=== PATIENT | female | born 1960 | race Caucasian/White ===

== ENCOUNTER 2021-06-17 09:00 | Emergency (ER) | payer OTHER, SELFPAY ==
[2021-06-17 09:10] VITALS: BP 153/60; PULSE 69; RESP 20; TEMP 36.7; O2SAT 100
--- NOTE | 2021-06-17 09:31 | ED.URI ---
HPI - URI/Sore Throat General Chief Complaint: Upper Respiratory Infection Stated Complaint: Cold/flu Time Seen by Provider: 06/17/21 09:33 Source: patient, RN notes reviewed and old records reviewed Mode of arrival: ambulatory Limitations: no limitations History of Present Illness HPI Narrative: 60-year-old female presents to the [facility] with complaints of I think I have bronchitis. Patient reports she has had a cough with chest congestion, sinus congestion, right ear pain. Patient states that she has taken Mucinex. Symptoms x2 days. Denies fevers, nausea, vomiting or diarrhea. States last time she had symptoms like this she had Tessalon Perles and an albuterol inhaler which helped. Related Data Home Medications Medication Instructions Recorded Confirmed aspirin [Aspirin Low Dose] 81 mg PO DAILY 06/17/21 06/17/21 baricitinib [Olumiant] 2 mg PO DAILY 06/17/21 06/17/21 folic acid 1 mg PO DAILY 06/17/21 06/17/21 gabapentin 200 mg PO HS 06/17/21 06/17/21 metoprolol tartrate 50 mg PO BID 06/17/21 06/17/21 sertraline 50 mg PO DAILY 06/17/21 06/17/21 Allergies Allergy/AdvReac Type Severity Reaction Status Date / Time methotrexate Allergy Severe Other Verified 06/17/21 09:27 NSAIDS (Non-Steroidal Allergy Intermediate Wheezing Verified 06/17/21 09:27 Anti-Inflamma Penicillins Allergy Intermediate Rash Verified 06/17/21 09:27 Sulfa (Sulfonamide Allergy Intermediate Rash Verified 06/17/21 09:27 Antibiotics) Review of Systems Review of Systems: All systems reviewed & are unremarkable except as noted in HPI and below Constitutional: Constitutional: Reports no additional constitutional complaints, Denies chills and Denies fever(s) Eyes: Eyes: Reports no additional eye complaints ENT: Reports as per HPI, Reports nasal congestion and Reports sore throat Cardiovascular: Cardiovascular: Reports no additional cardiovascular complaints and Denies chest pain Respiratory: Respiratory: Reports as per HPI, Reports chest congestion, Reports cough, Denies dyspnea and Denies wheezing Gastrointestinal: Gastrointestinal: Reports no additional gastrointestinal complaints, Denies abdominal pain, Denies nausea and Denies vomiting Musculoskeletal: Musculoskeletal: Reports no additional musculoskeletal complaints Integumentary/Breasts: Skin/Breast: Reports system reviewed and no additional complaints, except as docu Neurologic: Reports system reviewed and no additional complaints, except as documented Psychiatric: Psychiatric: Reports no additional psychiatric complaints Allergic/Immunologic: Allergic/Immunologic: Reports no additional allergic/immunologic complaints PMFSH Past Medical History Medical History (Updated 06/17/21 @ 09:47 by Magaly Robledo) Depression with anxiety Irregular heartbeat Rheumatoid arthritis Surgical History Surgical History (Updated 06/17/21 @ 09:44 by Magaly Robledo) No significant past surgical history Social History Social History (Updated 06/17/21 @ 09:44 by Magaly Robledo) Smoking status: Never smoker Substance use: never Living arrangements: with family Occupation/Education: occupation Additional occupation/education comments: Works healthcare Gender identity (if verbalized by the patient): Female Comments At the time of my signature, I reviewed and agree with the nursing past medical, surgical, social, and family history. There is no relevant family history pertinent to the patient complaint. Exam Const: General: healthy appearing, no acute distress and alert Nutritional Appearance: well nourished Orientation/consciousness: patient oriented x3 Limitations: no limitations HENMT: Head: normal to inspection Ears: external ears normal, TM's normal bilaterally and EAC's normal Eyes: Conjunctivae: conjunctivae normal Pupils: Equal, round and reactive pupils present Neck: Neck: normal visual inspection, no lymphadenopathy and no meningeal signs Chest: Chest
== END 2021-06-17 09:50 | disposition home or self-care (01) ==
PROVIDERS: Emergency Provider Nurse Practitioner
DX: J01.40 Acute pansinusitis, unspecified (principal); M06.9 Rheumatoid arthritis, unspecified; F41.9 Anxiety disorder, unspecified; F32.A Depression, unspecified; Z79.82 Long term (current) use of aspirin
CPT/HCPCS: 99213; G0463

== ENCOUNTER 2022-02-16 13:17 | Emergency (ER) | payer OTHER, SELFPAY ==
[2022-02-16 13:53] VITALS: BP 132/74; PULSE 107; RESP 20; TEMP 37.1; O2SAT 99
--- NOTE | 2022-02-16 14:45 | ED.URI ---
HPI - URI/Sore Throat General Chief Complaint: Upper Respiratory Infection Stated Complaint: Covid positive doctor sent Time Seen by Provider: 02/16/22 14:30 Source: patient, RN notes reviewed and old records reviewed Mode of arrival: ambulatory Limitations: no limitations History of Present Illness HPI Narrative: 61 year old female who presents to [facility] care with complaints or testing positive for COVID on home test today and states that her PCP wants her to be evaluated since she has autoimmune disease of RA.Patient reports that she attended a last not sure if she was exposed to anyone there who was ill. She reports that she has a cough and sore throat headache and feels some shortness of breath which started last evening. She reports that she had diarrhea yesterday but that has resolved today. Patient reports that she has been COVID vaccinated and had Booster. Patient states that her PCP told her to stop her Olumiant at this time since it will make her more immunosuppressed. MD elicited complaint: cough, sore throat and other (headache and some shortness of breath) Pertinent past history: immunosuppression and other (rheumatoid arthritis) Treatments prior to arrival: acetaminophen and other (Robitussin cough syrup last night) Related Data Home Medications Medication Instructions Recorded Confirmed aspirin 81 mg tablet,delayed 81 mg PO DAILY 06/17/21 02/16/22 release (Brandee Low Dose Aspirin) baricitinib 2 mg tablet (Olumiant) 2 mg PO DAILY 06/17/21 02/16/22 folic acid 1 mg tablet 1 mg PO DAILY 06/17/21 02/16/22 gabapentin 100 mg capsule 200 mg PO HS 06/17/21 02/16/22 metoprolol tartrate 50 mg tablet 50 mg PO BID 06/17/21 02/16/22 sertraline 50 mg tablet 50 mg PO DAILY 06/17/21 02/16/22 Allergies Allergy/AdvReac Type Severity Reaction Status Date / Time methotrexate Allergy Severe Other Verified 02/16/22 14:02 NSAIDS (Non-Steroidal Allergy Intermediate Wheezing Verified 02/16/22 14:02 Anti-Inflamma Penicillins Allergy Intermediate Rash Verified 02/16/22 14:02 Sulfa (Sulfonamide Allergy Intermediate Rash Verified 02/16/22 14:02 Antibiotics) Review of Systems Review of Systems: CONSTITUTIONAL: Denies fever, chills, or sweats. EYES: Denies visual changes, redness, or discharge. ENT: Denies rhinorrhea, congestion,positive for sore throat, no otalgia. CARDIOVASCULAR: Denies chest pain, palpitations, or edema. RESPIRATORY: Positive for cough or dyspnea. GASTROINTESTINAL: Denies abdominal pain, nausea, vomiting, or diarrhea yesterday which have resolved today GENITOURINARY: Denies dysuria or hematuria. SKIN: Denies rash or itching. MUSCULOSKELETAL: Denies back pain, joint pain,positive for body aches NEUROLOGIC: Positive for headache, no numbness, or weakness. PSYCHIATRIC: Positive for anxiety or depression. All systems reviewed & are unremarkable except as noted in HPI and below PMFSH Past Medical History Medical History Depression with anxiety Irregular heartbeat Rheumatoid arthritis Surgical History Surgical History History of tonsillectomy Hx of appendectomy Social History Social History Smoking status: Never smoker Substance use: never Additional occupation/education comments: Works healthcare Gender identity (if verbalized by the patient): Female Comments At time of signature, agree with nursing past medical, surgical, social and family history. There is no relevant family history pertinent to the presenting complaint Exam Narrative: GENERAL: ill-appearing, well-nourished, and in no acute distress. HEAD: Normocephalic, atraumatic. EYES: PERRLA and EOMI. ENT: Nares clear, no rhinorrhea or epistaxis. Mucous membranes moist.TM's normal with good light reflex, throat red no lesions or exudates no tonsils present NECK:
[2022-02-16 20:21] LABS: SARS-CoV-2 RNA PCR Positive
== END 2022-02-16 15:36 | disposition home or self-care (01) ==
PROVIDERS: Emergency Provider Registered Nurse
DX: U07.1 COVID-19 (principal); M06.9 Rheumatoid arthritis, unspecified; F41.8 Other specified anxiety disorders; Z79.82 Long term (current) use of aspirin
CPT/HCPCS: 87426; 99213; C9803; G0463; U0003; U0005